=== PATIENT | male | born 1955 ===

== ENCOUNTER → 2019-08-22 11:50 | Outpatient (CLI) | payer OTHER | END | disposition home or self-care (01) | LOC: LAB 11:50 | DX: C61 Malignant neoplasm of prostate (principal) ==

== ENCOUNTER 2019-09-10 07:35 | Outpatient (CLI) | payer OTHER | END 2019-09-10 08:30 | disposition home or self-care (01) | LOC: NUCLEAR 07:35 | DX: C61 Malignant neoplasm of prostate (principal) | CPT/HCPCS: 78306; 78320; A9503 ==

== ENCOUNTER 2019-09-17 08:10 | Outpatient (CLI) | payer OTHER | END 2019-09-17 08:18 | disposition home or self-care (01) | LOC: TOM 08:10 | DX: C61 Malignant neoplasm of prostate (principal) | CPT/HCPCS: 74177; Q9965 ==